=== PATIENT | male | born 1990 | race Caucasian/White ===

== ENCOUNTER 2017-05-14 22:05 | Emergency (ER) | payer SELFPAY ==
[~2017-05-14] VITALS: Ht 175.3 cm; Wt 90.2 kg
[2017-05-14 22:10] VITALS: TEMP 36.7; Ht 175.3 cm; Wt 90.2 kg
[2017-05-14] MEDS ORDERED: LIDOCAINE HCL 2% VISC SOLN 20 ML UDC MT STA (22:54)
[2017-05-14] MEDS ORDERED: KETOROLAC TROMETHAMINE 60 MG/2 ML VIAL IM STA (22:54)
[2017-05-14] MEDS ORDERED: MoRPHine SULFATE 4 MG/ML 1 ML CARP\\VIAL IM STA (22:54)
[2017-05-14] MEDS ORDERED: PENI-82 PO (23:01)
[2017-05-14] MEDS ORDERED: IBUP600T44 PO (23:01)
[2017-05-14] MEDS ORDERED: NAPR1TAB9 PO (23:01)
[2017-05-14] MEDS ORDERED: HYDR-5688 PO (23:01)
--- NOTE | 2017-05-14 23:04 | EMERGENCY ROOM VISIT NOTE ---
History Report prepared by Brandon: Hayden Arenas Under the Supervision of: Dr. Rei Michelle M.D. First contact with patient: 22:37 Chief Complaint: DENTAL PAIN Stated Complaint: TOOTH PAIN Nursing Triage Summary: pt reports L side facial pain in ear and molars X 1 day unable to sleep pain has become worse today pt reports taking ibuprofen, pcn and norco started all of this today after seeing dentist. History of Present Illness The patient is a 27 year old male who presents to the Emergency Room with complaints of pain over the teeth on the upper jaw of the left side of the mouth. The patient's father presented this HPI as there was a language barrier for the patient. He states that the patient went to get a cavity filled 1 month ago. A few days after the procedure the patient started to develop pain. This pain has worsened over the past couple of weeks and has now become severe. He did return to the dentist today to have an x-ray performed. This imaging was unremarkable. He was started on an antibiotic today, as well as a pain prescription. Source of History: parent Onset: 1 month ago Position: teeth (Left upper mouth) Symptom Intensity: severe Timing: worsening Review of Systems See HPI for pertinent positives & negatives. A total of 10 systems reviewed and were otherwise negative. Past Medical & Surgical None indicated Family History None indicated Social History Smoking Status: Never Smoker Marital Status: single Housing Status: lives with family Occupation Status: unemployed Current/Historical Medications Scheduled Naproxen (Aleve), 440-660 MG PO prn ud Penicillin V Potassium (Veetids), 500 MG PO Q6 Scheduled PRN Hydrocodone/Acetaminophen 5MG/325MG ([place] 5MG/325MG), 1 TABLET PO Q4 PRN for Pain Ibuprofen (Motrin), 600 MG PO TID PRN for Pain Physical Exam Vital Signs Date Time Temp Pulse Resp B/P (MAP) Pulse Ox O2 Delivery O2 Flow Rate FiO2 05/14/17 23:16 78 20 128/80 98 05/14/17 22:10 36.7 67 20 152/100 99 Room Air Physical Exam CONSTITUTIONAL/VITAL SIGNS: Reviewed / noted above. GENERAL: Non-toxic in appearance. INTEGUMENTARY: Warm, dry, and Roff. HEAD: Normocephalic. EYES: without scleral icterus or trauma. ENT/OROPHARYNX: clear and moist. There is a very small ulceration of the gum just overlying tooth number 13. LYMPHADENOPATHY/NECK: Is supple without lymphadenopathy or meningismus. RESPIRATORY: Lungs clear and equal. CARDIOVASCULAR: Regular rate and rhythm. GI/ABDOMEN: Soft and nontender. No organomegaly or pulsatile mass. No rebound or guarding. Normal bowel sounds. EXTREMITIES: Warm and well perfused. BACK: No CVA tenderness. NEUROLOGICAL: Intact without focal deficits. PSYCHIATRIC: normal affect. MUSCULOSKELETAL: Normally developed with good muscle tone. Medical Decision & Procedures Medications Administered Medications (Trade) Dose Ordered Sig/Gisselle Route Start Time Stop Time Status Last Admin Dose Admin Lidocaine HCl (Viscous Lidocaine 2% Soln) 10 ml NOW STAT MT 05/14/17 22:54 05/14/17 22:56 DC 05/14/17 23:11 10 ML Ketorolac Tromethamine (Toradol Inj) 60 mg NOW STAT IM 05/14/17 22:54 05/14/17 22:56 DC 05/14/17 23:12 60 MG Morphine Sulfate (MoRPHine SULFATE INJ) 4 mg NOW STAT IM 05/14/17 22:54 05/14/17 22:56 DC 05/14/17 23:12 4 MG ED Course 2243: Previous medical records were reviewed. The patient was evaluated in room A10. A complete history and physical examination was performed. 2254: Ordered Morphine Sulfate 4 mg IM, Toradol 60 mg IM, Lidocaine HCl 10 mL MT. 2255: On reevaluation, the patient is resting in bed. I discussed the results and findings with the patient. He verbalized agreement of the treatment plan. The patient was discharged home. Medical Decision Differential includes aphthous ulcer, dental infection or carry, abscess, facial infection, sinus infection. This is a 27-year-old male who presents to the ED with a chief complaint of a dental pain. The patient saw his dentist about a month ago and had a tooth filled. The patient reports having pain in the 13th or 14th tooth. His dentist did an x-ray today and did not she an abscess. They did start him on penicillin, hydrocodone and Motrin. The patient states that his pain is not controlled. He has not had fevers, nausea vomiting or any other specific symptoms. When evaluating the teeth, there is no obvious abscess or mucosal edema. The incision looks relatively unremarkable. He does have some mucosal ulceration just above the 13th tooth that has the appearance of an aphthous ulcer. This is rather small. Because the patient's increased pain that is uncontrolled with hydrocodone and Motrin, he was given an IM injection of Toradol and I am morphine. He was also given topical lidocaine to the area. The patient is felt to be stable for discharge. They will continue the prescribed medications and follow-up with the dentist. Impression Primary Impression: Dentalgia Scribe Attestation The scribe's documentation has been prepared under my direction and personally reviewed by me in its entirety. I confirm that the note above accurately reflects all work, treatment, procedures, and medical decision making performed by me. Departure Information Dispostion Home / Self-Care Patient Instructions My [facility] Additional Instructions Try Ambesol for topical relief. Continue current medications you were prescribed. Follow-up with your dentist.
[2017-05-14 23:16] VITALS: BP 128/80; PULSE 78; O2SAT 98
== END 2017-05-14 23:18 | disposition home or self-care (01) ==
LOC: C.EDB 22:09 → C.EDA 23:18
DX: K08.89 Other specified disorders of teeth and supporting structures (principal)